=== PATIENT | female | born 1960 | race Caucasian/White ===

== ENCOUNTER 2018-09-09 10:29 | Emergency (ER) | payer MEDICAID, OTHER ==
[~2018-09-09] VITALS: Ht 162.6 cm; Wt 77.3 kg
[~2018-09-09 10:29] MED LIST: ASPI-496 PO; CYCL-259 PO; FENT-58 SC; METO25TA35 PO; OXYC15TA PO; PREG150C PO; TRAZ150T62 PO
[2018-09-09] MEDS ORDERED: SODIUM CHLORIDE FLUSH 10ML SYR IVF ONE (11:00)
[2018-09-09 11:08] LABS: BASOPHILS # (AUTO) 0.02 x10^3/uL (0-0.1); BASOPHILS % (AUTO) 0 % (0-1); EOSINOPHILS # (AUTO) 0.11 x10^3/uL (0-0.4); EOSINOPHILS % (AUTO) 2 % (1-7); LYMPHOCYTES # (AUTO) 0.99 x10^3/uL (1-3.4); LYMPHOCYTES % (AUTO) 18 % (22-44); MD NO; MEAN CORPUSCULAR HEMOGLOBIN 31.3 pg (27.0-34.8); MEAN CORPUSCULAR HGB CONC 33.6 g/dL (32.4-35.8); MEAN CORPUSCULAR VOLUME 93.2 fL (80-100); MEAN PLATELET VOLUME 9.2 fL (7.4-10.4); MONOCYTES # (AUTO) 0.33 x10^3/uL (0.2-0.8); MONOCYTES % (AUTO) 6 % (2-9); NEUTROPHILS # (AUTO) 4.24 x10^3/uL (1.8-6.8); NEUTROPHILS % (AUTO) 75 % (42-75); PLATELET COUNT 222 x10^3/uL (130-400); RED BLOOD COUNT 5.35 x10^6/uL (3.82-5.3); RED CELL DISTRIBUTION WIDTH 12.3 % (9.6-15.2)
[2018-09-09 11:21] LABS: ALBUMIN 4.2 g/dL (3.4-5.0); ANION GAP 7 mmol/L (5-15); CHLORIDE 107 mmol/L (98-107)
[2018-09-09 11:24] LABS: ALANINE AMINOTRANSFERASE 35 U/L (12-78); ALKALINE PHOSPHATASE 84 U/L (45-117); BILIRUBIN,TOTAL 0.9 mg/dL (0.2-1.0); CREATININE 0.74 mg/dL (0.55-1.02)
--- NOTE | 2018-09-09 11:46 | NUR ---
PT TO ROOM FROM ULTRASOUND.
[2018-09-09] MEDS ORDERED: SODIUM CHLORIDE 0.9% 1,000 ML IV ONE (12:03)
--- NOTE | 2018-09-09 12:04 | NUR ---
PT PRESENTS TO ED WITH N/V [id number], AGRIVATED BY EATING AND "THROWS UP EVERYTHING I EAT". PT PLACED ON MONITOR, MD AT BEDSIDE
[2018-09-09] MEDS ORDERED: ONDANSETRON 2MG/ML, 2ML ONE (12:24)
[2018-09-09] MEDS ORDERED: HYDROmorphone 1 MG/ML, 1ML ONE (12:24)
[2018-09-09] MEDS ORDERED: SODIUM CHLORIDE 0.9% 1,000ML IVBOLUS ONE (12:30)
[2018-09-09] MEDS ORDERED: ONDANSETRON 2MG/ML, 2ML IVPush ONE (12:30)
[2018-09-09] MEDS ORDERED: HYDROmorphone 2 MG/ML, 1ML IVPush PRN (12:30)
[2018-09-09 12:32] LABS: TROPONIN I < 0.015 ng/mL (0.000-0.045)
--- NOTE | 2018-09-09 12:33 | NUR ---
PT MEDICATED FOR PAIN AND NAUSEA, IVF RUNNING. PT INSTRUCTED ON NEED FOR URINE SAMPLE AND SAYS "I CAN'T PEE BECAUSE I HAVENT HAD ANY FLUIDS FOR 3 DAYS", KOKI.
--- NOTE | 2018-09-09 13:03 | NUR ---
PT TO BATHROOM, PER MD NO UA NEEDED. TO DC PT HOME
[2018-09-09 13:06] VITALS: BP 123/78
== END 2018-09-09 13:13 | disposition home or self-care (01) ==
LOC: ED 12:12
DX: K80.20 Calculus of gallbladder without cholecystitis without obstruction (principal); R11.2 Nausea with vomiting, unspecified; I25.2 Old myocardial infarction; F17.200 Nicotine dependence, unspecified, uncomplicated
CPT/HCPCS: 36415; 76700; 80053; 83690; 84484; 85025; 93005; 96361; 96374; 96375; 99284; J1170; J2405; J7030

== ENCOUNTER 2021-02-24 15:52 | Emergency (ER) | payer MEDICAID, OTHER ==
[~2021-02-24] VITALS: Ht 162.6 cm; Wt 79.2 kg
[~2021-02-24 15:52] MED LIST changes: -CYCL-259 PO; +CYCL10TA2 PO; -OXYC15TA PO; +OXYC15TA3 PO
[2021-02-24 16:06] VITALS: BP 142/76
[2021-02-24 16:47] LABS: BASOPHILS % (AUTO) 2 % (0-1); EOSINOPHILS % (AUTO) 5 % (1-7); LYMPHOCYTES % (AUTO) 28 % (22-44); MEAN CORPUSCULAR HEMOGLOBIN 32.2 pg (27.0-34.8); MEAN CORPUSCULAR HGB CONC 34.3 g/dL (32.4-35.8); MONOCYTES % (AUTO) 15 % (2-9); NEUTROPHILS % (AUTO) 50 % (42-75); PLATELET COUNT 109 x10^3/uL (130-400); RED BLOOD COUNT 4.64 x10^6/uL (3.82-5.3); RED CELL DISTRIBUTION WIDTH 13.3 % (9.6-15.2)
[2021-02-24 16:54] LABS: ALANINE AMINOTRANSFERASE 47 U/L (12-78); ALBUMIN 3.8 g/dL (3.4-5.0); ANION GAP 3 mmol/L (5-15); CALCIUM 8.5 mg/dL (8.5-10.1); CHLORIDE 110 mmol/L (98-107)
[2021-02-24 16:56] LABS: ALKALINE PHOSPHATASE 84 U/L (45-117); BILIRUBIN,TOTAL 0.9 mg/dL (0.2-1.0)
--- NOTE | 2021-02-24 19:35 | NUR ---
Patient given discharge instructions and they have confirmed that they understand the instructions. Patient ambulatory with steady gait. NAD, all questions answered appropriately, denies additional needs at this time. No personal belongings left in room after discharge. Patient also refusing dc vitals.
== END 2021-02-24 20:11 | disposition home or self-care (01) ==
LOC: ED 19:55
DX: U07.1 COVID-19 (principal); R10.84 Generalized abdominal pain; R11.2 Nausea with vomiting, unspecified
CPT/HCPCS: 36415; 74022; 80053; 85025; 99284; U0003; U0005